=== PATIENT | male | born 1990 | race Caucasian/White ===

== ENCOUNTER 2017-06-29 04:49 | Emergency (ER) | payer OTHER ==
[2017-06-29 05:22] VITALS: TEMP 98.9
--- NOTE | 2017-06-29 05:34 | C.PDOC ---
History Of Present Illness 27 year old male presents to the ED c/o increased swelling to the left cheek for the past 3 days. 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 Patient was seen at [facility] were he was D/C with antibiotics, patient tried using warm compresses in the area. Patient reports area became more swollen then attempted to squeeze out the pus but swelling increased prompting the visit today. Patient denies fever, chill, nausea, vomit, diarrhea, blurry vision, headache. Time Seen by Provider: 06/29/17 05:13 Chief Complaint (Nursing): Abnormal Skin Integrity History Per: Patient History/Exam Limitations: no limitations Onset/Duration Of Symptoms: Days Location Of Injury: Left: Face (cheek) Quality Of Symptoms: Painful, Swollen Recent travel outside of the [place]: No Additional History Per: Patient Past Medical History Reviewed: Historical Data, Nursing Documentation, Vital Signs Vital Signs: Last Vital Signs Temp 98.9 F 06/29/17 05:14 Pulse 106 H 06/29/17 05:14 Resp 20 06/29/17 05:14 BP 139/76 06/29/17 05:14 Pulse Ox 98 06/29/17 05:45 - Medical History PMH: No Chronic Diseases Surgical History: No Surg Hx Family History: States: Unknown Family Hx - Social History Hx Alcohol Use: No Hx Substance Use: No - Immunization History Hx Tetanus Toxoid Vaccination: Yes (last year) Review Of Systems Constitutional: Negative for: Fever, Chills Eyes: Negative for: Vision Change ENT: Positive for: Other (Facial swelling) Cardiovascular: Negative for: Chest Pain Respiratory: Negative for: Cough, Shortness of Breath Gastrointestinal: Negative for: Nausea, Vomiting Skin: Negative for: Rash Neurological: Negative for: Weakness, Numbness Physical Exam - Physical Exam Appears: Non-toxic, No Acute Distress Skin: Normal Color, Warm, Dry Head: Atraumatic, Normacephalic, Tenderness (left cheek extending underneath the left eye with induration in the center. No fluctance, no streaking), Swelling (left cheek extending underneath the left eye) Eye(s): bilateral: Normal Inspection, PERRL, EOMI Ear(s): Bilateral: Normal Nose: No Discharge Oral Mucosa: Moist Tongue: No Swelling Lips: No Swelling Teeth: Normal Dentition Neck: Normal ROM, Supple Chest: Symmetrical Cardiovascular: Rhythm Regular, No Murmur Respiratory: Normal Breath Sounds, No Rales, No Rhonchi, No Wheezing Gastrointestinal/Abdominal: Soft, No Tenderness, No Guarding, No Rebound Extremity: Normal ROM Neurological/Psych: Oriented x3, Normal Motor, Normal Sensation Gait: Steady ED Course And Treatment - Laboratory Results Result Diagrams: 06/29/17 06:22 18 06:22 O2 Sat by Pulse Oximetry: 98 (On RA) Pulse Ox Interpretation: Normal Medical Decision Making Medical Decision Making: Plan: * CT orbits * Labs Disposition - Disposition Disposition Time: 07:01 Condition: GOOD Forms: [employer] (Hungarian) - Clinical Impression Clinical Impression: Facial swelling, Cellulitis - 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 - Scribe Statement The provider has reviewed the documentation as recorded by the Scribe Alex Lind All medical record entries made by the Scribe were at my direction and personally dictated by me. I have reviewed the chart and agree that the record accurately reflects my personal performance of the history, physical exam, medical decision making, and the department course for this patient. I have also personally directed, reviewed, and agree with the discharge instructions and disposition. Physician Patient Turnover Patient Signed Over To: Sara Ovalle (Breanna) Handoff Comments: Pending CT scan and disposition.
[2017-06-29 06:24] LABS: BASO # 0.1 K/uL (0.0-0.2); BASO % 1.1 % (0.0-2.0); EOS # 0.2 K/uL (0.0-0.7); HEMOGLOBIN 14.5 g/dL (12.0-18.0); LYMPH # 2.7 K/uL (1.0-4.3); LYMPH % 25.6 % (20.0-40.0); MEAN CELL VOLUME 85.4 fL (80.0-94.0); MEAN CORPUSCULAR HEMOGLOBIN 30.1 pg (27.0-31.0); MEAN CORPUSCULAR HGB CONC 35.3 g/dL (33.0-37.0); MEAN PLATELET VOLUME 10.1 fL (7.2-11.7); MONO # 1.1 K/uL (0.0-0.8); MONO % 9.9 % (0.0-10.0); NEUT # 6.6 K/uL (1.8-7.0); NEUT % 61.4 % (50.0-75.0); NRBC % 0.1 % (0.0-2.0); RBC 4.83 Mil/uL (4.40-5.90); WHITE BLOOD COUNT 10.7 K/uL (4.8-10.8)
[2017-06-29 06:38] LABS: ALB/GLOB RATIO 1.1 (1.0-2.1); ALBUMIN 3.8 g/dL (3.5-5.0); ALT/SGPT 70 U/L (21-72); AST/SGOT 44 U/L (17-59); BLOOD UREA NITROGEN 17 mg/dL (9-20); CALCIUM 8.7 mg/dl (8.6-10.4); GFR AFRICAN-AMERICAN > 60; GFR NON-AFRICAN AMERICAN > 60
[2017-06-29] MEDS ORDERED: Iodixanol 320 MG/ML 100 ML BOTTLE IV ONE (06:44)
--- NOTE | 2017-06-29 07:53 | CT ---
EXAM: CT Maxillofacial and mandible With Intravenous Contrast CLINICAL HISTORY: 27 years old, male; Pain; Face pain and jaw pain; Prior surgery; Additional info: Facial swelling, pain l cheek TECHNIQUE: Axial computed tomography images of the face and mandible with intravenous contrast. All CT scans at this facility use one or more dose reduction techniques, viz.: automated exposure control; ma/kV adjustment per patient size (including targeted exams where dose is matched to indication; i.e. head); or iterative reconstruction technique. [address] maxillofacial with mandible Coronal and sagittal reformatted images were created and reviewed. Axial reformatted images were created and reviewed. CONTRAST: 100 mL of [id number] administered intravenously. COMPARISON: No relevant prior studies available. FINDINGS: Bones/joints: No acute fracture. Soft tissues: There is left facial submandibular soft tissue swelling with subcutaneous infiltration representing cellulitis/edema. Lymph nodes: Submandibular lymph node on the left measuring 9 mm in short axis. Orbits: Unremarkable. Submandibular/parotid glands: Fatty infiltration of parotid glands. Mild inflammatory changes noted around the left submandibular salivary gland. Sinuses: Patchy sinus disease. No air-fluid levels. Dental: No significant dental disease is identified. Brain: The visualized portions of the brain appears grossly unremarkable. IMPRESSION: 1. There is left facial submandibular soft tissue swelling with subcutaneous infiltration representing cellulitis/edema. No definite abscess is identified. 2. Mild inflammatory changes noted around the left submandibular salivary gland. Correlation with clinical data is recommended if sialadenitis is clinically suspected.
[2017-06-29 08:01] VITALS: BP 99/57; PULSE 76; RESP 18; O2SAT 96
== END 2017-06-29 08:14 | disposition left against medical advice (07) ==
LOC: C.ER 04:49
DX: L03.211 Cellulitis of face (principal)
CPT/HCPCS: 70481; 80053; 85025; 87070; 87181; 96374; 99284; J1885; Q9967